=== PATIENT | female | born 1990 | race Caucasian/White ===

== ENCOUNTER 2018-12-19 08:45 | Emergency (ER) | payer MEDICAID ==
[~2018-12-19] VITALS: Ht 152.4 cm; Wt 98.5 kg
[2018-12-19] MEDS ORDERED: CLIN150C2 PO (09:13)
[2018-12-19 10:27] LABS: URINE HCG NEGATIVE (NEG)
[2018-12-19 10:54] VITALS: BP 118/67
== END 2018-12-19 10:55 | disposition home or self-care (01) ==
LOC: ER 08:46
DX: L02.211 Cutaneous abscess of abdominal wall (principal); F15.90 Other stimulant use, unspecified, uncomplicated; F11.90 Opioid use, unspecified, uncomplicated; Z56.0 Unemployment, unspecified; Z60.2 Problems related to living alone; Z59.0 Homelessness; Z79.899 Other long term (current) drug therapy
CPT/HCPCS: 81025; 99283

== ENCOUNTER 2021-06-13 08:30 | Emergency (ER) | payer MEDICAID ==
[~2021-06-13] VITALS: Ht 154.9 cm; Wt 72.7 kg
[2021-06-13] MEDS ORDERED: PENI500T2 PO (09:52)
[2021-06-13] MEDS ORDERED: LIDOcaine Viscous 15ml cup MM ONE (09:55)
[2021-06-13] MEDS ORDERED: LIDOcaine 1% 30ml preserv. free vial IJ ONE (09:55)
[2021-06-13] MEDS ORDERED: penicillin V potassium 500mg tablet PO ONE (09:55)
[2021-06-13 10:46] VITALS: BP 136/72
== END 2021-06-13 10:50 | disposition home or self-care (01) ==
LOC: ER 08:33
DX: K04.7 Periapical abscess without sinus (principal); K08.89 Other specified disorders of teeth and supporting structures; F15.90 Other stimulant use, unspecified, uncomplicated; F11.90 Opioid use, unspecified, uncomplicated; Z60.2 Problems related to living alone; Z56.0 Unemployment, unspecified; Z59.00 Homelessness unspecified; Z79.2 Long term (current) use of antibiotics
CPT/HCPCS: 41800; 99284; J2001

== ENCOUNTER 2023-10-29 15:58 | Emergency (ER) | payer MEDICAID ==
[~2023-10-29] VITALS: Ht 152.4 cm; Wt 81.4 kg
[2023-10-29 16:01] VITALS: BP 146/88; PULSE 99; RESP 17; TEMP 98.6; O2SAT 100
[2023-10-29] MEDS ORDERED: PRED20TA PO (16:15)
[2023-10-29] MEDS ORDERED: ACYC-129 PO (16:15)
== END 2023-10-29 17:39 | disposition home or self-care (01) ==
LOC: ER 15:59
DX: G51.0 Bell's palsy (principal); F15.10 Other stimulant abuse, uncomplicated; Z59.00 Homelessness unspecified; Z56.0 Unemployment, unspecified; Z79.899 Other long term (current) drug therapy
CPT/HCPCS: 99283

== ENCOUNTER 2025-04-10 11:41 | Emergency (ER) | payer MEDICAID ==
[~2025-04-10] VITALS: Ht 152.4 cm; Wt 79.5 kg
[2025-04-10 11:54] VITALS: BP 165/79; PULSE 102; RESP 18; TEMP 97.8; O2SAT 99
[2025-04-10] MEDS ORDERED: HYDR-3965 PO (11:57)
[2025-04-10] MEDS ORDERED: ANBESOL TP (11:57)
[2025-04-10] MEDS ORDERED: CLIN-224 PO (11:57)
--- NOTE | 2025-04-10 12:00 | Physician Documentation ---
HPI ~ General Stated Complaint: TOOTH PAIN Time Seen by MD: 11:55 OK to notify your PCP?: Yes Primary Medical Doctor: [facility] Source: patient Mode of Arrival: POV Exam Limitations: no limitations History of Present Illness HPI Comment 34-year-old female with right lower dental pain for the past week. She states she has been taking ibuprofen for pain relief but this is no longer helping. She has a plan to see the dentist in the next 3 months to have those teeth removed. Medication Reconciliation Allergies: Coded Allergies: No Known Allergies (Unverified , 04/10/25) Scheduled Benzocaine* (Anbesol*), 1 APPLIC TP Q2H Clindamycin HCL* (Clindamycin HCL*), 1 CAP PO Q8H Scheduled PRN Hydrocodone Bit/Acetaminophen 5/325 MG ([place] 5/325 MG), 1 TAB PO TID PRN PRN for pain Past Medical History Past Medical History: No Pertinent History Past Surgical History: noncontributory Alcohol Use: None Drug Use: methamphetamine, heroin Lives with: Alone Lives In: Homeless Occupation: unemployed Physical Exam Vital Signs: RN Vital Signs have been reviewed: Yes Pulse Oximetry Reflects: adequate oxygenation Physical Exam General: Alert, no distress. HEENT: No injection, moist mucous membranes. Neck: Full range of motion. No cervical lymphadenopathy Respiratory: No respiratory distress, equal chest rise and fall. Chest: No accessory muscle use. Cardiovascular: Regular rate and rhythm. Gastrointestinal: Nondistended. Extremities: Normal range of motion, no deformity. Neurologic: Oriented x4. Psychiatric: Normal mood and affect. Skin: Normal color, warm and dry. Teeth/Gums: carious, missing teeth, tender, gingiva redness, gingiva swelling Teeth/Gums Teeth number 29, 30 and 31. Face: normal inspection Progress Results/Orders Reviewed/noted all lab results: Yes Results/Orders Vital Signs 04/10/25 11:54 Temp 97.8 Pulse 102 Resp 18 B/P (MAP) 165/79 Pulse Ox 99 O2 Flow Rate 0 Medical Decision Making Additional info obtained from: old records Findings 34-year-old female with right dental jaw swelling and redness x 1 week. She has tried taking ibuprofen but is no longer receiving any relief. On physical exam, She has multiple teeth in various stages of decay on that side. I started her on clindamycin and since some pain medications to her pharmacy. She does have a dental appointment but it is in 3 months I educated her that she needs to call them and see if she can be seen sooner. She can return back here for any new or worsening symptoms. Differential Dx:Considerations: Include: Facial Cellulitis, Periapical abscess, Tooth Fracture, Trigeminal neuralgia Departure Disposition: HOME / SELF CARE / HOMELESS Impression: Primary Impression: Dental abscess Condition: Stable Discharge Instructions: Dental Abscess, [id number] Additional Instructions: Please start taking your antibiotics today and pick up and delivery driver from the pharmacy. Continue with your plans to see the dentist to have those teeth pulled, call and see if you can get an earlier appointment. Return back here for any new or worsening symptoms. Referrals: NO PRIMARY CARE PROVIDER (PCP) Prescriptions Benzocaine* (Anbesol*) 12 Ml Bottle 1 APPLIC TP Q2H for 10 Days, #1 EACH Prov: AMANDA SU 04/10/25 Hydrocodone Bit/Acetaminophen 5/325 MG ([place] 5/325 MG) 5 Mg/325 Mg Tablet 1 TAB PO TID PRN PRN for pain for 5 Days, #15 TAB Prov: AMANDA SU 04/10/25 Clindamycin HCL* (Clindamycin HCL*) 300 Mg Capsule 1 CAP PO Q8H for 10 Days, #30 CAP 0 Refills Prov: AMANDA SU 04/10/25 Education Educated: Patient Educated regarding: diagnosis, treatment, prognosis, need for follow up Additional Comment Medical Screen Exam This patient recieved a medical screening examination. After reviewing the individual's medical complaints with presenting symptoms and performing an appropriate physical examination, it was determined that no immediate life- threatening emergency medical condition is present. This individual is also not a women having contractions. Signature Scribe Signature: . Attestation: Scribed for Amanda Su by Amanda Briones NP . 04/10/25 12:02 Parts of this note were created using [employer] voice recognition software program. While efforts were made to correct any mistakes made by this voice recognition software program, nonsensical phrases may remain in this note. In addition, there may be errors and syntax, grammar, content and spelling. AMANDA SU Apr 10, 2025 12:00
== END 2025-04-10 12:12 | disposition home or self-care (01) ==
LOC: ER 11:41
DX: K04.7 Periapical abscess without sinus (principal); F15.90 Other stimulant use, unspecified, uncomplicated; F11.90 Opioid use, unspecified, uncomplicated
CPT/HCPCS: 99283

== ENCOUNTER 2025-04-12 18:25 | Emergency (ER) | payer MEDICAID ==
[~2025-04-12] VITALS: Ht 153 cm; Wt 80.8 kg
[~2025-04-12 18:25] MED LIST: ANBESOL TP; CLIN-224 PO; HYDR-3965 PO
[2025-04-12] MEDS: HYDROcodone/acetaminophen 10/325mg tab PO STA ×2 (18:40→23:31)
--- NOTE | 2025-04-12 18:46 | Physician Documentation ---
History of Present Illness ~ Chief Complaint: Tooth Problem Stated Complaint: MOUTH PAIN Time Seen by MD: 18:29 Primary Medical Doctor: [facility] Patient is seen today with complaints of severe dental pain and facial swelling. Patient states facial swelling started about a week ago and she was started on clindamycin about two days ago and states it has gotten significantly worse and states it is moving into her neck and throat almost as if her throat is in danger of closing. Patient currently denies any stridor or shortness of breath or difficulty breathing or chest pain or abdominal pain or nausea, vomiting, diarrhea. Patient has no other concern or complaint at this time. Tetanus Within 5 Years: Yes Medication Reconciliation Allergies: Coded Allergies: No Known Allergies (Unverified , 04/10/25) Scheduled Benzocaine* (Anbesol*), 1 APPLIC TP Q2H Clindamycin HCL* (Clindamycin HCL*), 1 CAP PO Q8H Scheduled PRN Hydrocodone Bit/Acetaminophen 5/325 MG ([place] 5/325 MG), 1 TAB PO TID PRN PRN for pain Past Medical History Past Medical History: No Pertinent History Past Surgical History: noncontributory Alcohol Use: None Drug Use: methamphetamine, heroin Lives with: Alone Lives In: Homeless Occupation: unemployed Review of Systems Constitutional: Denies: chills, fever, weakness Eyes: Denies: pain, blurred vision ENT: Denies: ear pain, nose pain, throat pain, mouth pain Respiratory: Denies: cough, shortness of breath Cardiovascular: Denies: chest pain, palpitations Gastrointestinal: Denies: abdominal pain, nausea, vomiting Genitourinary: Denies: burning, dysuria Female Genitalia: Denies: vaginal discharge, pelvic pain Neurological: Denies: headache, dizziness Musculoskeletal: Denies: pain, swelling Integumentary: Denies: rash, lesions Allergic/Immunologic: Denies: hives, itching Hematologic/Lymphatic: Denies: no symptoms reported Psychiatric: Denies: depression, anxiety Physical Exam Physical Exam General: Awake and Alert, no acute distress. HEENT: Patient on exam does have significant swelling of the right lower jaw extending into the submental area with induration and swelling noted with tenderness to palpation. Patient's is patent. I do not appreciate any stridor on exam. Conjunctiva pink, Sclera clear, Mucus Membranes moist. Neck: Supple without masses and tenderness. Resp: Unlabored. Lungs clear to auscultation bilaterally. Heart: Regular Rate and rhythm, normal S1 and S2 without murmur, rub or gallop. Abdomen: Soft and non tender no organomegaly Extremities: No cyanosis,clubbing or edema. Skin: Warm and Dry. Progress Results/Orders Results/Orders Orders - VITO ALMEIDA PAC Ct Neck Soft Tissues (04/12/25 21:31) Completed Orders - VITO ALMEIDA PAC Cbc/Diff (04/12/25 18:40) BMP (04/12/25 18:40) Ct Neck Soft Tissues (04/12/25 21:31) Hydrocodone/Apap 10/325 ([place] 10/325mg (04/12/25 18:40) Hcg Serum Ql (04/12/25 20:33) Metronidazole Tablet (Flagyl Tablet) (04/12/25 22:13) Medications Received in ER Medications (Trade) Dose Ordered Sig/Yung Route PRN Reason Start Time Stop Time Status Last Admin Dose Admin ([place] 10/325mg tab) 1 tab ONCE STAT PO 04/12/25 18:40 04/12/25 18:46 DC 04/12/25 18:40 1 TAB (Flagyl tablet) 500 mg ONCE STAT PO 04/12/25 22:13 04/12/25 22:22 DC 04/12/25 22:30 500 MG Vital Signs 04/12/25 04/12/25 04/12/25 04/12/25 18:35 18:40 20:00 20:39 Temp 98.0 Pulse 106 70 Resp 16 18 16 14 B/P (MAP) 152/83 163/77 (105) Pulse Ox 99 100 O2 Flow Rate 0 04/12/25 04/12/25 22:00 22:15 Pulse 67 Resp 14 15 B/P (MAP) 134/57 (82) Pulse Ox 100 Laboratory Tests Test 04/12/25 18:50 04/12/25 20:41 White Blood Count 10.5 Red Blood Count 4.29 Hemoglobin 14.4 Hematocrit 39.9 Mean Corpuscular Volume 93.0 Mean Corpuscular Hemoglobin 33.6 H Mean Corpuscular Hemoglobin Concent 36.2 Red Cell Distribution Width 13.5 Platelet Count 222 Mean Platelet Volume 6.9 L Neutrophils (%) (Auto) 77.6 H Lymphocytes (%) (Auto) 15.0 L Monocytes (%) (Auto) 6.5 Eosinophils (%) (Auto) 0.2 Basophils (%) (Auto) 0.7 Neutrophils # (Auto) 8.2 H Lymphocytes # (Auto) 1.6 Monocytes # (Auto) 0.7 Eosinophils # (Auto) 0.0 Basophils # (Auto) 0.1 CBC Comment Platelet Estimate Normal Large Platelets Few Red Blood Cell Morphology Perf Basophilic Stippling Spherocytes 1+ Sodium Level 140 Potassium Level 3.5 Chloride Level 105 Carbon Dioxide Level 22.6 L Anion Gap 12 Blood Urea Nitrogen 5 L Creatinine 0.63 Estimated GFR/1.73 m2 > 90 BUN/Creatinine Ratio 7.9 L Glucose Level 140 H Calcium Level 9.5 Albumin 3.9 Chemistry Comments Human Chorionic Gonadotropin, Qual Negative EKG/XRAY/CT/US/VASC/MRI CT : Impression CAT SCAN Patient: GERMAIN JAIN Medical Record: [id number] [facility] 1990, Age: 34 Sex: Female Location: ER Patient Status: [facility] ER Service Date/Time: 04/12/252130 Ordering Physician: VITO ALMEIDA PAC Exam: CT NECK SOFT TISSUES EXAM: CT CT NECK SOFT TISSUES INDICATION: facial swelling Exam Date: 04/12/2025 09:19 PM COMPARISON: None TECHNIQUE: CT of the neck with intravenous contrast. RADIATION DOSE: CTDIvol: 15 mGy, DLP: 536 mGy*cm CONTRAST: Type of contrast: 936 Contrast injected: 100 ml FINDINGS: There is no evidence of cervical mass lesion, pathologically enlarged lymph nodes or fluid collection. The airway and larynx are unremarkable. The parotid, submandibular and thyroid glands are unremarkable. The vascular structures of the neck appear patent. The visualized lung apices are clear. The limited visualized portions of the brain are unremarkable. The osseous structures are unremarkable. Soft tissue swelling, fat stranding, and skin thickening is seen in the right cheek which may reflect cellulitis. No discernible abscess identified. IMPRESSION: 1. Soft tissue swelling, fat stranding, and skin thickening is seen in the right cheek which may reflect cellulitis. No discernible abscess identified. Electronically Signed by:TRINH WARD MD Date & Time: 04/12/252148 Dictated by: TRINH WARD MD Dictation date and time: 04/12/252148 Primary Care Provider: NO PRIMARY CARE PROVIDER cc: VITO ALMEIDA PAC ~ Medical Decision Making Findings Patient is seen today with complaints of severe dental pain and facial swelling. Patient states facial swelling started about a week ago and she was started on clindamycin about two days ago and states it has gotten significantly worse and states it is moving into her neck and throat almost as if her throat is in danger of closing. Patient currently denies any stridor or shortness of breath or difficulty breathing or chest pain or abdominal pain or nausea, vomiting, diarrhea. Patient has no other concern or complaint at this time. Patient did have CT scan of soft tissues of the neck that showed no sign of airway involvement and no significant abscess formation in his soft tissues of the neck. Patient was given dose of [place] 10/325, Augmentin 875/125 mg, metronidazole 500 mg, and a 2nd dose of [place] 10/325 mg about 4 hours after the 1st dose. Patient tolerated well and states she is feeling a little better. Patient was given prescriptions of these same three medications sent to patient's pharmacy and she will follow up in 2-3 days if no better as needed sooner. Return to ED with any worsening, concerning or changing symptoms. Departure Disposition: HOME / SELF CARE / HOMELESS Impression: Primary Impression: Dental abscess Condition: Improved Discharge Instructions: Dental Abscess Additional Instructions: Patient will stop the clindamycin. Patient did have CT scan of soft tissues of the neck that showed no sign of airway involvement and no significant abscess formation in his soft tissues of the neck. Patient was given dose of [place] 10/325, Augmentin 875/125 mg, metronidazole 500 mg, and a 2nd dose of [place] 10/325 mg about 4 hours after the 1st dose. Patient tolerated well and states she is feeling a little better. Patient was given prescriptions of these same three medications sent to patient's pharmacy and she will follow up in 2-3 days if no better as needed sooner. Return to ED with any worsening, concerning or changing symptoms. Referrals: NO PRIMARY CARE PROVIDER (PCP) Prescriptions Ibuprofen (Ibuprofen) 800 Mg Tablet 1 TAB PO Q8H for pain for 10 Days, #30 TAB 0 Refills Prov: VITO ALMEIDA 04/12/25 Hydrocodone Bit/Acetaminophen (Hydrocodone-Apap 10-325 Tablet) 10mg/325mg Tablet 1 TAB PO TID PRN PRN for pain for 5 Days, #15 TAB Prov: VITO ALMEIDA 04/12/25 Metronidazole* (Flagyl*) 500 Mg Tablet 1 TAB PO Q8H for 10 Days, #30 TAB Prov: VITO ALMEIDA 04/12/25 Amox Tr/Potassium Clavulanate 875/125 MG (Augmentin 875/125 MG) 875 Mg-125 Mg Tablet 1 TAB PO Q12H for 10 Days, #20 TAB Prov: VITO ALMEIDA 04/12/25 Signature Scribe Signature: No scribe Attestation: No scribe VITO ALMEIDA Apr 12, 2025 18:46
[2025-04-12 19:05] LABS: MEAN PLATELET VOLUME 6.9 FL (7.4-10.4); RED CELL DISTRIBUTION WIDTH 13.5 % (11.5-14.5)
[2025-04-12 19:16] LABS: CREATININE 0.63 MG/DL (0.40-0.90); TOTAL CARBON DIOXIDE 22.6 MMOL/L (24-32); eCRCL 90 ML/MIN; eGFR > 90 ML/MIN
[2025-04-12 19:50] LABS: PLATELET ESTIMATE NORMAL
[2025-04-12 19:51] LABS: LARGE PLATELETS FEW
[2025-04-12 21:25] LABS: HCG SERUM QL NEGATIVE
--- NOTE | 2025-04-12 21:52 | RADIOLOGY REPORT ---
EXAM: CT CT NECK SOFT TISSUES INDICATION: facial swelling Exam Date: 04/12/2025 09:19 PM COMPARISON: None TECHNIQUE: CT of the neck with intravenous contrast. RADIATION DOSE: CTDIvol: 15 mGy, DLP: 536 mGy*cm CONTRAST: Type of contrast: 936 Contrast injected: 100 ml FINDINGS: There is no evidence of cervical mass lesion, pathologically enlarged lymph nodes or fluid collection . The airway and larynx are unremarkable. The parotid, submandibular and thyroid glands are unremarkable. The vascular structures of the neck appear patent. The visualized lung apices are clear. The limited visualized portions of the brain are unremarkable. The osseous structures are unremarkable. Soft tissue swelling, fat stranding, and skin thickening is seen in the right cheek which may reflect cellulitis. No discernible abscess identified. IMPRESSION: 1. Soft tissue swelling, fat stranding, and skin thickening is seen in the right cheek which may refl ect cellulitis. No discernible abscess identified.
[2025-04-12 23:15] VITALS: BP 136/66; PULSE 65; O2SAT 100
[2025-04-12] MEDS ORDERED: HYDR-3973 PO (23:15)
[2025-04-12] MEDS ORDERED: METR-159 PO (23:15)
[2025-04-12] MEDS ORDERED: AMOX-580 PO (23:15)
[2025-04-12] MEDS ORDERED: IBUP-1986 PO (23:16)
[2025-04-12 23:19] VITALS: TEMP 98.2
[2025-04-12 23:31] VITALS: RESP 15
[2025-04-12] MEDS: amox tr/potassium clavulanate 875/125mg TAB PO STA (23:31)
== END 2025-04-12 23:30 | disposition home or self-care (01) ==
LOC: ER 18:26
DX: K04.7 Periapical abscess without sinus (principal); F15.90 Other stimulant use, unspecified, uncomplicated; F11.90 Opioid use, unspecified, uncomplicated; Z79.899 Other long term (current) drug therapy; Z60.2 Problems related to living alone
CPT/HCPCS: 36415; 70491; 80048; 84703; 85008; 85025; 99285; Q9967